=== PATIENT | male | born 1950 | race Caucasian/White ===

== ENCOUNTER → 2020-06-26 07:44 | Outpatient (CLI) | payer MEDICARE, SELFPAY ==
--- NOTE | ~2020-06-26 | US_ITS ---
EXAMINATION: US aorta [facility] DATE: 06/26/2020 08:11 INDICATION: Abdominal aortic aneurysm screening TECHNIQUE: Grayscale, color Doppler, and pulsed Doppler images of the aorta and common iliac arteries were obtained. COMPARISON: None. FINDINGS: The proximal aorta measures 2.2 cm. The mid aorta measures 1.9 cm. The distal aorta measures 1.7 cm. The right common iliac artery measures 11 mm. The left common iliac artery measures 11 mm. IMPRESSION: 1. Normal caliber abdominal aorta. Reviewed, dictated and finalized at location A.
== END ==
PROVIDERS: PCP Student in an Organized Health Care Education/Training Program; Visit Provider Student in an Organized Health Care Education/Training Program
DX: Z13.6 Encounter for screening for cardiovascular disorders (principal)
CPT/HCPCS: 76706

== ENCOUNTER 2021-05-05 12:25 | Emergency (ER) | payer MEDICARE, SELFPAY ==
[2021-05-05 12:38] VITALS: BP 161/69; PULSE 67; RESP 16; TEMP 36.7; O2SAT 99
--- NOTE | 2021-05-05 12:51 | ED.BACK ---
HPI - Back Pain/Injury General Chief Complaint: Back Pain/Injury Stated Complaint: Rt groin Time Seen by Provider: 05/05/21 12:40 Source: patient and RN notes reviewed Mode of arrival: ambulatory Limitations: no limitations History of Present Illness HPI Narrative: Patient presents today complaining of a 2-day history of right-sided low back pain radiating to the right buttock and down the right leg. Pain is intermittent. Denies any injury or trauma. Denies any recent heavy lifting. He does report some intermittent tingling to the right lateral knee. Pain decreases after he has been up and walking for period of time, but increases again when he is lying down and trying to get comfortable. Rates pain 8/10. He has tried ice, heat, bareback and body with some relief. Denies numbness in his legs, feet, or genitals. Denies any loss of bowel or bladder control. MD elicited complaint: back pain Related Data Home Medications Medication Instructions Recorded Confirmed levothyroxine 100 mcg DAILY 05/05/21 05/05/21 lisinopril 20 mg DAILY 05/05/21 05/05/21 rosuvastatin 10 mg DAILY 05/05/21 05/05/21 Allergies Allergy/AdvReac Type Severity Reaction Status Date / Time No Known Allergies Allergy Mild Verified 05/05/21 12:27 Review of Systems Review of Systems: Narrative: CONSTITUTIONAL: Denies body aches, fever, chills, or sweats. EYES: Denies visual changes, redness, or discharge. ENT: Denies rhinorrhea, congestion, sore throat, or otalgia. CARDIOVASCULAR: Denies chest pain, palpitations, or edema. RESPIRATORY: Denies cough or dyspnea. GASTROINTESTINAL: Denies abdominal pain, nausea, vomiting, or diarrhea. GENITOURINARY: Denies dysuria or hematuria. SKIN: Denies rash, itching, or wounds. MUSCULOSKELETAL: Denies joint pain, or myalgia. + Back pain radiating to the right leg NEUROLOGIC: Denies headache, numbness, or weakness. + Tingling right lateral knee PSYCH: Denies depression or anxiety. [facility] Past Medical History Medical History (Updated 05/05/21 @ 12:58 by Maria E Graves, [employer], [employer]) Hypertension Hypothyroidism Social History Social History Smoking status: Former smoker Alcohol intake: current Gender identity (if verbalized by the patient): Male Comments At time of signature, I have reviewed and agree with nursing past medical, surgical, social and family history unless otherwise noted. Please see nursing chart for further information. There is no relevant family history pertinent to the presenting complaint Exam Narrative: Exam Narrative: GENERAL: Well-appearing, well-nourished, and in no acute distress. HEAD: Normocephalic, atraumatic. EYES: EOMI. No redness or drainage. Conjunctivae normal. ENT: Mucous membranes pink and moist. NECK: Normal AROM. CHEST: No respiratory distress. MUSCULOSKELETAL: No bony tenderness of the thoracic or lumbar spine. Right lumbar paraspinal muscle tenderness and extends to the right buttock/SI joint. No tenderness to the lateral hip. Patient does have tenderness to the lateral right knee. Distal sensation intact. Capillary refill normal. Saddle sensation intact. Pedal pulses normal. Foot push and pulls equal and strong. EXTREMITIES: Normal range of motion. No edema. SKIN: Warm, dry, no rash. Capillary refill normal. Normal skin turgor. NEURO: No focal deficits. Alert and oriented x3. Gait steady. PSYCH: Normal affect. No signs of depression or anxiety. Course Vital Signs Vital signs: Vital Signs Temperature 98.1 F 05/05/21 12:38 Pulse Rate 67 05/05/21 12:38 Respiratory Rate 16 05/05/21 12:38 Blood Pressure 161/69 H 05/05/21 12:38 Pulse Oximetry 99 05/05/21 12:38 Temperature 98.1 F 05/05/21 12:38 Pulse Rate 67 05/05/21 12:38 Respiratory Rate 16 05/05/21 12:38 Blood Pressure 161/69 H 05/05/21 12:38 Pulse Oximetry 99 05/05/21 12:38 Reviewed. Pt has been instructed to follow up with his PCP regarding his elevated blood pressure
== END 2021-05-05 12:56 | disposition home or self-care (01) ==
PROVIDERS: Emergency Provider Nurse Practitioner
DX: M54.31 Sciatica, right side (principal); I10 Essential (primary) hypertension; E03.9 Hypothyroidism, unspecified
CPT/HCPCS: 99213; G0463

== ENCOUNTER 2023-09-18 02:15 | Day surgery (SDC) | payer MEDICARE, SELFPAY ==
[2023-09-05 14:50] VITALS: BMI 39.9
--- NOTE | 2023-09-17 12:58 | PM.HPGS ---
History of Present Illness History of Present Illness Consent: Risks, benefits, and alternatives have been discussed and questions answered. Patient agrees to proceed with procedure. Chief complaint: neoplasm screening Narrative: Suraj Jackson is a 72 year old male referred for colon cancer screening. he has a history of colon polyps on a few occasions. His last colonoscopy was 5 years ago. Review of Systems Review of Systems: All systems reviewed & are unremarkable except as noted in HPI and below PMFSH Past Medical History Medical History Hypertension Hypothyroidism Social History Social History Years smoked: 15 Smoking status: Former smoker Tobacco type: cigarettes Alcohol intake: current Drinks per week: 28 Alcohol use details: DRINKS/BEERS Substance use: never Substance use type: does not use Living arrangements: with family Gender identity (if verbalized by the patient): Male Spiritual care concerns: No Meds Home Medications and Allergies Home Medications Medication Instructions Recorded Confirmed Type levothyroxine 100 mcg tablet 100 mcg PO DAILY 05/05/21 09/18/23 History rosuvastatin 10 mg tablet 10 mg PO DAILY 05/05/21 09/18/23 History aspirin 81 mg tablet 81 mg PO DAILY 09/05/23 09/18/23 History lisinopril 40 mg tablet 40 mg PO DAILY 09/05/23 09/18/23 History Allergies Allergy/AdvReac Type Severity Reaction Status Date / Time No Known Allergies Allergy Mild Verified 09/18/23 12:32 Exam Resp: Auscultation: clear to auscultation bilaterally Cardio: Rate: regular rate Rhythm: regular rhythm GI: GI Palp: Yes Soft to palpation and No Tenderness to palpation present (GI) Assessment and Plan Assessment and plan (1) Colon cancer screening: Code(s): Z12.11 - Encounter for screening for malignant neoplasm of colon Status: Acute Assessment and Plan: Colonoscopy with possible biopsy or polypectomy or cautery or injection of substances.
--- NOTE | 2023-09-18 12:30 | WPDANESEPPF ---
Anes - Initial Pre Proc Eval Procedure: Operation Date: 09/18/23 13:45 Proposed Procedures p Screening Colonoscopy - Edmar Dee MD Date/Time: 09/18/23 12:30 Surgeon: Edmar Dee MD Pre Op Diagnosis: neoplasm screening Patient Data Age: 72 Gender: M Height: 1.75 m Weight: 122.5 kg Allergies Allergy/AdvReac Type Severity Reaction Status Date / Time No Known Allergies Allergy Mild Verified 09/05/23 14:50 Home Medications Medication Instructions Recorded Confirmed Type levothyroxine 100 mcg tablet 100 mcg PO DAILY 05/05/21 09/05/23 History rosuvastatin 10 mg tablet 10 mg PO DAILY 05/05/21 09/05/23 History aspirin 81 mg tablet 81 mg PO DAILY 09/05/23 09/05/23 History lisinopril 40 mg tablet 40 mg PO DAILY 09/05/23 09/05/23 History Patient hx anesthesia problems: none Family hx anesthesia problems: none Results Review: All pre-operative results and documents have been reviewed as part of the pre-operative evaluation. [facility] Past Medical History Medical History (Updated 09/17/23 @ 12:58 by Edmar Dee MD) Hypertension Hypothyroidism Social History Social History Years smoked: 15 Smoking status: Former smoker Tobacco type: cigarettes Alcohol intake: current Drinks per week: 28 Alcohol use details: DRINKS/BEERS Substance use: never Substance use type: does not use Living arrangements: with family Gender identity (if verbalized by the patient): Male Spiritual care concerns: No Anes - Eval Final PreProcedure Day of Procedure 09/18/23 12:30 Patient weight: morbidly obese Heart: regular rate and rhythm Lungs: clear to auscultation Airway: Mallampati scale class III Neurological: alert and oriented Last oral intake: >/= 8 hours ASA classification: III Emergent: no Anesthetic plan: proceed Anesthesia type and monitoring: general GIVS and standard monitoring Results Review: All pre-operative results and documents have been reviewed as part of the pre-operative evaluation. Informed Consent: The patient's anesthetic plan and its attendant risks and benefits were discussed with the patient/family/POA. Questions were solicited and answers provided to the satisfaction of the patient/family/POA.
[2023-09-18 12:34] VITALS: BP 157/78; PULSE 78; RESP 18; TEMP 36.1; O2SAT 96
[2023-09-18] MEDS: LACTATED RINGERS 1,000 ML 150 ML IV CONT (12:45)
[2023-09-18] MEDS: SIMETHICONE ORAL SUSPENSION 20 MG/0.3 ML 30 ML BOTTLE 0.6 ML IRRIGATION (13:29)
[2023-09-18 13:45] VITALS: BP 139/76; PULSE 65; RESP 23; O2SAT 96
[2023-09-18 13:55] VITALS: BP 156/83; PULSE 60; RESP 20; O2SAT 98
[2023-09-18 14:05] VITALS: BP 168/91; PULSE 61; RESP 24; O2SAT 99
== END 2023-09-18 14:07 | disposition home or self-care (01) ==
PROVIDERS: PCP Student in an Organized Health Care Education/Training Program; Visit Provider Internal Medicine Gastroenterology
PROC: 0DJD8ZZ Inspection of Lower Intestinal Tract, Via Natural or Artificial Opening Endoscopic (ICD-10-PCS; CPT 45378; principal; 2023-09-18 13:45)
DX: Z12.11 Encounter for screening for malignant neoplasm of colon (principal); D12.0 Benign neoplasm of cecum; D12.5 Benign neoplasm of sigmoid colon; K64.8 Other hemorrhoids; I10 Essential (primary) hypertension; E03.9 Hypothyroidism, unspecified; Z79.82 Long term (current) use of aspirin; Z87.891 Personal history of nicotine dependence; E66.01 Morbid (severe) obesity due to excess calories; Z68.39 Body mass index [BMI] 39.0-39.9, adult
CPT/HCPCS: 45385; 88305; J2704; J7120

== ENCOUNTER 2023-12-27 08:56 | Emergency (ER) | payer MEDICARE, SELFPAY ==
--- NOTE | 2023-12-27 09:10 | ED.UPPEXIN ---
HPI - Extremity Injury (Upper) General Chief Complaint: Extremity Injury, Upper Stated Complaint: right elbow swelling Time Seen by Provider: 12/27/23 09:15 Source: patient Mode of arrival: ambulatory Limitations: no limitations History of Present Illness HPI narrative: Suraj is a 73-year-old male patient presenting to the clinic today with complaints of right elbow swelling for the past 2-3 days. He reports he has his elbow a couple times and it has become more painful and swollen. Does have a low-grade temperature in the clinic today. Related Data Home Medications Medication Instructions Recorded Confirmed levothyroxine 100 mcg tablet 100 mcg PO DAILY 05/05/21 12/27/23 rosuvastatin 10 mg tablet 10 mg PO DAILY 05/05/21 12/27/23 aspirin 81 mg tablet 81 mg PO DAILY 09/05/23 12/27/23 lisinopril 40 mg tablet 40 mg PO DAILY 09/05/23 12/27/23 Allergies Allergy/AdvReac Type Severity Reaction Status Date / Time No Known Allergies Allergy Mild Verified 12/27/23 09:25 Review of Systems Review of Systems: Pertinent positives per HPI. Patient denies any fever, chills, rash, headache, visual changes, dizziness, cough, shortness of breath, chest pain, palpitations, nausea, vomiting, diarrhea, constipation, abdominal pain, or any urinary issues. PMFSH Past Medical History Medical History Hypertension Hypothyroidism Social History Social History Years smoked: 15 Smoking status: Former smoker Tobacco type: cigarettes Alcohol intake: current Drinks per week: 28 Alcohol use details: DRINKS/BEERS Substance use: never Substance use type: does not use Living arrangements: with family Gender identity (if verbalized by the patient): Male Spiritual care concerns: No Comments At the time of my signature, I reviewed and agree with the nursing past medical, surgical, social, and family history. There is no relevant family history pertinent to the patient complaint. Exam Narrative: General: Well-developed, well nourished, in no apparent distress Head: Normocephalic, atraumatic. Cardio: Regular rate and rhythm, s1 and s2 normal, no murmur appreciated. Resp: Clear to auscultation bilaterally, no rhonchi, rales, wheezing or rubs. Musculoskeletal: No deformity, redness, erythema, and swelling to the posterior right olecranon, areas redness measuring approx 2.5 x3cm, tender to palpation without fluctuance, grossly normal range of motion, muscle strength strong and equal, peripheral pulse strong, no edema, no cyanosis, normal gait and station Course Course Emergency Course: Portions of this record may have been created with voice recognition software. Level of Care: Express Care Visit Vital Signs Vital signs: Vital signs reviewed MDM - Extremity Injury (Upper) MDM Narrative Medical decision making narrative: At the time of visit patient is resting comfortably on the exam table. Patient appears to be nontoxic. Plan: I suspect patient has olecranon bursitis versus early cellulitis of the right elbow. Prescription for Medrol Dosepak and clindamycin was sent to the pharmacy. Supportive measures were discussed with the patient and they voiced understanding discharge instructions and agrees to treatment plan. Return precautions reviewed Differential Diagnosis Differential diagnosis: Likely other (Olecranon bursitis, cellulitis, skin infection) Discharge Plan Discharge Clinical Impression: Bursitis Qualifiers: Bursitis location: elbow Elbow bursitis location: olecranon bursitis Laterality: right Qualified Code(s): M70.21 - Olecranon bursitis, right elbow Patient Disposition: Home, Self-Care Condition: Stable Instructions: Antibiotic Form, Elbow Bursitis (ED) Additional Instructions: Rest, ice, elevate, and wear jordi wrap as directed Tylenol/motrin for pain as discus
[2023-12-27 09:13] VITALS: BP 187/75; PULSE 93; RESP 16; TEMP 37.7; O2SAT 98
== END 2023-12-27 09:22 | disposition home or self-care (01) ==
PROVIDERS: Emergency Provider Nurse Practitioner Family; PCP Student in an Organized Health Care Education/Training Program
DX: M70.21 Olecranon bursitis, right elbow (principal); Z87.891 Personal history of nicotine dependence; I10 Essential (primary) hypertension; E03.9 Hypothyroidism, unspecified; Z79.82 Long term (current) use of aspirin
CPT/HCPCS: 99213; G0463